=== PATIENT | female | born 1960 | race African-American/Black ===

== ENCOUNTER 2018-03-26 09:21 | Emergency (ER) | payer MEDICAID ==
[~2018-03-26] VITALS: Ht 160 cm; Wt 64.0 kg
[~2018-03-26 09:21] MED LIST: ALBU05 IH
[2018-03-26 09:31] VITALS: BP 131/89
[2018-03-26] MEDS ORDERED: KETOROLAC 60MG/2ML VIAL IM ONE (11:45)
== END 2018-03-26 11:45 | disposition left against medical advice (07) ==
LOC: ER 09:21
DX: M54.40 Lumbago with sciatica, unspecified side (principal); J45.909 Unspecified asthma, uncomplicated; Z98.890 Other specified postprocedural states
CPT/HCPCS: 99282; J1885

== ENCOUNTER 2021-06-20 18:33 | Emergency (ER) | payer MEDICAID ==
[~2021-06-20] VITALS: Ht 157.5 cm; Wt 50.0 kg
[2021-06-20 18:41] VITALS: BP 142/72
[2021-06-20] MEDS ORDERED: IBUP-2028 MT (19:12)
[2021-06-20] MEDS ORDERED: KETOROLAC 60MG/2ML VIAL IM ONE (19:15)
[2021-06-20] MEDS ORDERED: BACITRACIN ZINC OINT UDPKT TOP ONE (19:15)
== END 2021-06-20 21:00 | disposition home or self-care (01) ==
LOC: ER 20:55
DX: S80.211A Abrasion, right knee, initial encounter (principal); S90.415A Abrasion, left lesser toe(s), initial encounter; M54.5 Low back pain; M25.511 Pain in right shoulder; V03.90XA Pedestrian on foot injured in collision with car, pick-up truck or van, unspecified whether traffic or nontraffic accident, initial encounter; Y93.89 Activity, other specified; Y92.89 Other specified places as the place of occurrence of the external cause
CPT/HCPCS: 72100; 73030; 73560; 96372; 99284; J1885